=== PATIENT | female | born 1975 | race Caucasian/White ===

== ENCOUNTER 2019-02-26 10:49 | Emergency (ER) | payer OTHER ==
[~2019-02-26] VITALS: Ht 160 cm; Wt 85.1 kg
[2019-02-26 10:50] VITALS: BP 143/59
[2019-02-26] MEDS ORDERED: LIDOCAINE 2% TOPICAL JELLY 5GM TUBE. TP ONE (11:05)
[2019-02-26] MEDS ORDERED: LIDOCAINE 2% VISCOUS 15 ML SOLUTION. TOP ONE (11:15)
--- NOTE | 2019-02-26 11:29 | PHYS DOC ---
Adult General Chief Complaint Chief Complaint: THUMB HPI HPI Patient is a 43-year-old female who presents with injury to her left thumb after cutting some cabbage. Patient states that she cut her thumb. She rates pain is mild to moderate, described the pain as an ache. She denies any other injuries. Patient does indicate that she is not up-to-date on her tetanus.[] Review of Systems Review of Systems Constitutional: Denies fever or chills [] Respiratory: Denies cough or shortness of breath [] Cardiovascular: No additional information not addressed in HPI [] Musculoskeletal: Positive left thumb pain [] Integument: Positive laceration left thumb[] Current Medications Current Medications Current Medications Medications (Trade) Dose Ordered Sig/Naty Start Time Stop Time Status Last Admin Dose Admin Diphtheria/ Tetanus/Acell Pertussis (Boostrix) 0.5 ml ONCE ONCE 02/26/19 11:15 02/26/19 11:16 UNV Lidocaine HCl (Viscous Lidocaine) 15 ml 1X ONCE 02/26/19 11:15 02/26/19 11:16 UNV 02/26/19 11:12 15 ML Lidocaine HCl (Xylocaine 2% Topical 5gm Tube) 5 rachel STK-MED ONCE 02/26/19 11:05 02/26/19 11:06 DC Allergies Allergies Allergies Coded Allergies Type Severity Reaction Last Updated Verified No Known Drug Allergies 02/26/19 No Physical Exam Physical Exam Constitutional: Well developed, well nourished, no acute distress, non-toxic appearance. [] Cardiovascular: Regular rate and rhythm[] Lungs & Thorax: Bilateral breath sounds clear to auscultation [] Skin: There is a small laceration in shape a flap to the distal tip of the left thumb. [] EKG EKG [] Radiology/Procedures Radiology/Procedures [] Course & Med Decision Making Course & Med Decision Making Pertinent Labs and Imaging studies reviewed. (See chart for details) No laceration repair performed as flap is nonviable and serves biologic dressing Dragon Disclaimer Dragon Disclaimer This electronic medical record was generated, in whole or in part, using a voice recognition dictation system. Departure Departure: Impression: Primary Impression: Laceration of finger of left hand Disposition: 01 HOME, SELF-CARE Condition: STABLE Referrals: RENAE KELLEY DO (PCP) Patient Instructions: Fingertip Laceration Problem Qualifiers Primary Impression: Laceration of finger of left hand Encounter type: initial encounter Finger: thumb Damage to nail status: without damage Foreign body presence: without foreign body Qualified Codes: S61.012A - Laceration without foreign body of left thumb without damage to nail, initial encounter ALISA CAMPOS Jr., DO Feb 26, 2019 11:29
[2019-02-26] MEDS ORDERED: DIPHTH,PERTUSS(ACELL),TET TOX 0.5 ML DISP.SYRIN. VAX IM ONE (11:30)
== END 2019-02-26 11:36 | disposition home or self-care (01) ==
LOC: ER 10:49
DX: S61.012A Laceration without foreign body of left thumb without damage to nail, initial encounter (principal); W45.8XXA Other foreign body or object entering through skin, initial encounter; Y93.89 Activity, other specified; Y92.89 Other specified places as the place of occurrence of the external cause; Y99.8 Other external cause status
CPT/HCPCS: 90471; 90715; 99283